=== PATIENT | female | born 1960 | race Caucasian/White ===

== ENCOUNTER → 2016-07-15 | Outpatient (CLI) | payer BC ==
[~2016-07-15] MED LIST: CHOL20007 PO; CYCL10TA6 PO; DICL-201 PO; FENO145T26 PO; METF-384 PO; OXYC-57 PO; SERT-234 PO; SIMV40TA2 PO; TRAZ100T29 PO; WARF2TAB PO
--- NOTE | 2016-07-15 10:47 | DIAGNOSTIC IMAGING REPORT ---
RIGHT HIP UNILATERAL 2 VIEWS CLINICAL HISTORY: Right hip pain. COMPARISON: Right hip radiographs December 04, 2015. FINDINGS: Severe right hip joint space narrowing has progressed since prior exam. This extensive osteophytosis. There is no fracture or suspicious lesion. There is no radiographic evidence of avascular necrosis of the right femoral head. IMPRESSION: Progression of severe osteophytosis of the right hip since exam of December 04, 2015. Electronically signed by: Rome Awad M.D. 07/15/2016 10:45 AM Dictated Date/Time: 07/15/2016 10:44 AM
== END | disposition home or self-care (01) ==
LOC: C.RADBC 10:22
PROVIDERS: ATTEND Family Medicine
DX: M25.551 Pain in right hip (principal)

== ENCOUNTER → 2016-08-12 | Outpatient (CLI) | payer BC | END | disposition home or self-care (01) | LOC: C.RDSM 10:48 | PROVIDERS: ATTEND Physical Medicine & Rehabilitation Sports Medicine | DX: M25.559 Pain in unspecified hip (principal) ==

== ENCOUNTER → 2016-10-21 | Outpatient (CLI) | payer BC ==
[~2016-10-21] MED LIST changes: -DICL-201 PO
== END | disposition home or self-care (01) ==
LOC: C.RDSM 13:04
PROVIDERS: ATTEND Physical Medicine & Rehabilitation Sports Medicine
DX: Z47.1 Aftercare following joint replacement surgery (principal); Z96.641 Presence of right artificial hip joint

== ENCOUNTER → 2017-07-28 | Outpatient (CLI) | payer BC, OTHER ==
[~2017-07-28] MED LIST changes: -OXYC-57 PO; -WARF2TAB PO
== END | disposition home or self-care (01) ==
LOC: C.RDSM 15:26
PROVIDERS: ATTEND Physical Medicine & Rehabilitation Sports Medicine
DX: T84.84XA Pain due to internal orthopedic prosthetic devices, implants and grafts, initial encounter (principal); Y79.2 Prosthetic and other implants, materials and accessory orthopedic devices associated with adverse incidents; Z96.641 Presence of right artificial hip joint